=== PATIENT | female | born 1940 | race Caucasian/White ===

== ENCOUNTER 2019-08-29 05:52 | Outpatient (CLI) | payer MEDICARE, BC, OTHER ==
[2019-08-30 13:10] LABS: SARS-CoV-2 MS2 Positive; SARS-CoV-2 N Gene Negative; SARS-CoV-2 S Gene Negative; SARS-CoV-2 orf1ab Negative
== END 2019-08-29 05:53 | disposition home or self-care (01) ==
LOC: LABBT 05:52
PROVIDERS: ATTEND Ophthalmology Retina Specialist
DX: Z01.812 Encounter for preprocedural laboratory examination (principal); Z11.59 Encounter for screening for other viral diseases; H35.371 Puckering of macula, right eye
CPT/HCPCS: 87635; U0003

== ENCOUNTER 2019-09-01 05:46 | Day surgery (SDC) | payer MEDICARE, BC, OTHER ==
[2019-08-25 13:41] VITALS: BMI 33.5
[2019-09-01] MEDS ORDERED: Fluorouracil 100 MG, Enoxaparin Sodium 25 MG, EPINEPHrine 0.3 MG in Ophthalmic Irrigati... IRR SCH (06:00)
[2019-09-01] MEDS ORDERED: Phenylephrine 2.5% Ophth Soln 5 ML BOT ONE (06:00)
[2019-09-01] MEDS ORDERED: Cyclopentolate 1% Opth Drop 2 ML BOT ONE (06:00)
[2019-09-01] MEDS ORDERED: Fentanyl 100 MCG/2 ML VIAL ONE (06:33)
[2019-09-01] MEDS ORDERED: PROPOFOL 20 ML ONE (06:33)
[2019-09-01] MEDS ORDERED: Midazolam HCl 2 mg/2 ml Vial ONE (06:33)
[2019-09-01] MEDS ORDERED: hydrALAZINE 20 MG/ML VIAL ONE (07:11)
[2019-09-01] MEDS ORDERED: Maxitrol 0.1% Opth Oint 3.5 GM TUBE ONE (11:14)
[2019-09-01] MEDS ORDERED: Lidocaine 4% PF 5 ML AMP ONE (11:14)
[2019-09-01] MEDS ORDERED: Enoxaparin Sodium 30 MG/0.3 ML SYRINGE ONE (11:14)
[2019-09-01] MEDS ORDERED: Indocyanine Green 25 MG/10 ML VIAL ONE (11:14)
[2019-09-01] MEDS ORDERED: Lidocaine 1% PF 5 ML VIAL ONE (11:14)
[2019-09-01] MEDS ORDERED: Triamcinolone 40 MG/ML VIAL ONE (11:14)
[2019-09-01] MEDS ORDERED: CEFAZOLIN 1 GM VIAL ONE (11:14)
[2019-09-01] MEDS ORDERED: Bupivacaine PF 0.75% SDV 10 ML ONE (11:14)
--- NOTE | 2019-09-02 13:43 | OP ---
DATE OF PROCEDURE: 09/01/2019 PREOPERATIVE DIAGNOSIS: Epiretinal membrane, right eye. POSTOPERATIVE DIAGNOSIS: Epiretinal membrane, right eye. PROCEDURE PERFORMED: Pars plana vitrectomy, right eye. ANESTHESIA: Local with monitored anesthesia care. DESCRIPTION OF PROCEDURE: The patient was identified in the preoperative holding area. Appropriate informed consent for the planned surgical procedure on the right eye had been obtained. The patient was transported to the operative suite. Appropriate cardiopulmonary monitoring was established. Local anesthesia obtained using retrobulbar modified [place] Lint lid block using 50:50 mixture of 4% lidocaine and 0.75% bupivacaine. The patient was prepped and draped in usual sterile manner for ophthalmic surgery of right eye. Lid speculum was placed in the right eye. A 27-gauge trocar was placed in conjunctiva and sclera superotemporally, inferotemporally, and supranasally. Infusion was placed inferotemporally. Light pipe vitreous cutter inserted to the eye. Core vitrectomy was performed. Posterior hyaloid face was elevated and peeled into the retinal periphery using the vitreous cutter. Indocyanine green dye was infused in the posterior pole x1, identifying the epiretinal membrane. This was elevated along the supratemporal arcade using membrane scraper and peeled across the macula using end-gripping forceps. Laser was placed behind the sclerotomy sites and no holes, breaks, or tears were noted by indirect ophthalmoscopy. Trocars removed. Eye was noted to retain pressure well. Retrobulbar Kenalog and subconjunctival Ancef were placed. Antibiotic ointment placed. The eye was patched and shielded. The patient was taken to postoperative recovery unit in good condition, having suffered no immediate perioperative complications. The patient was instructed to keep patch and shield on, avoid lifting or bending, followup appointment with Dr. Plummer. Job ID: [id number]
== END 2019-09-01 08:40 | disposition home or self-care (01) ==
LOC: SDC 05:46
PROVIDERS: ATTEND Ophthalmology Retina Specialist
PROC: 08T43ZZ Resection of Right Vitreous, Percutaneous Approach (ICD-10-PCS; principal; 2019-09-01)
PROC: 08NE3ZZ Release Right Retina, Percutaneous Approach (ICD-10-PCS; 2019-09-01)
DX: H35.371 Puckering of macula, right eye (principal); Z88.1 Allergy status to other antibiotic agents; Z88.5 Allergy status to narcotic agent
CPT/HCPCS: J0171; J0360; J0690; J1650; J2001; J2250; J2704; J3010; J3301; J3490; J9190